=== PATIENT | female | born 1990 ===

== ENCOUNTER 2016-10-27 21:53 | Emergency (ER) | payer OTHER ==
[2016-10-27 22:38] LABS: URINE BILIRUBIN NEGATIVE (NEGATIVE); URINE BLOOD 4+ (NEGATIVE); URINE GLUCOSE (UA) NEGATIVE (NEGATIVE); URINE LEUKOCYTE ESTERASE 2+ (NEGATIVE); URINE NITRITE POSITIVE (NEGATIVE); URINE PROTEIN 2+ (NEGATIVE); URINE UROBILINOGEN NORMAL (0-1 mg/dl)
[2016-10-27 22:40] LABS: URINE APPEARANCE CLOUDY; URINE COLOR YELLOW
[2016-10-27 22:41] LABS: HCG,QUALITATIVE URINE NEGATIVE
[2016-10-27 22:44] LABS: URINE BACTERIA 3+; URINE RBC >100 /hpf; URINE WBC >100 /hpf
[2016-10-27] MEDS ORDERED: CEPHALEXIN 500 MG CAPSULE ONE (22:54)
[2016-10-29 14:56] LABS: CHLAMYDIA BD Positive (Negative); N.GONORRHOEAE BD Negative (Negative); SOURCE Urine (())
== END 2016-10-27 23:07 | disposition home or self-care (01) ==
LOC: ED 21:53
DX: N39.0 Urinary tract infection, site not specified (principal)
CPT/HCPCS: 87491; 87591; 81025; 87086; 87186; 81001; 99282; 99283; A9270